=== PATIENT | female | born 1970 ===

== ENCOUNTER 2020-06-10 09:35 | Inpatient (IN) | payer OTHER ==
[~2020-06-10] VITALS: Ht 172.7 cm; Wt 68.0 kg
[~2020-06-10 09:35] MED LIST: MULTI-VITAMIN1 EACH PO
== END 2020-06-12 16:20 | disposition home or self-care (01) | DRG 585 ==
LOC: O/R 06-11 05:40 → SURG 06-11 05:40 → O/R 06-11 07:00 → SURG 06-11 14:52 → O/R 06-11 15:10 → SURG 06-12 16:20
PROVIDERS: ADMIT Specialist; ATTEND Specialist
PROC: 0H0V0ZZ Alteration of Bilateral Breast, Open Approach (ICD-10-PCS; principal; 2020-06-12)
PROC: 0HB7XZZ Excision of Abdomen Skin, External Approach (ICD-10-PCS; 2020-06-12)
DX: N62 Hypertrophy of breast (principal); E65 Localized adiposity